=== PATIENT | male | born 1955 | race Two or more races ===

== ENCOUNTER 2025-09-25 22:50 | Emergency (ER) | payer MEDICARE, OTHER ==
[~2025-09-25] VITALS: Ht 165.1 cm; Wt 56.7 kg
[2025-09-26 00:26] LABS: APPEARANCE,URINE CLEAR (CLEAR); BLOOD, URINE TRACE-INTA Ery/uL (NEGATIVE); LEUKOCYTE ESTERASE ,URINE 2+ (NEGATIVE); NITRITE, URINE NEGATIVE (NEGATIVE); UGLUCOSE 2+ mg/dL (NEGATIVE)
[2025-09-26] MEDS ORDERED: CIPR-262 PO (00:30)
[2025-09-26] MEDS ORDERED: CIPROFLOXACIN HCL 500 MG TABLET ONE (00:32)
[2025-09-26] MEDS: CIPROFLOXACIN HCL 500 MG TABLET PO ONE (00:39)
[2025-09-26 00:41] LABS: ADD URINE CULTURE YES; SQUAMOUS EPITHELIAL CELL,UR 0-2 /HPF (None Seen)
[2025-09-26 00:42] LABS: YEAST,URINE Few /HPF (None Seen)
[2025-09-26 00:45] VITALS: BP 135/68; TEMP 98; O2SAT 99
== END 2025-09-26 00:48 | disposition home or self-care (01) ==
LOC: ER 22:57
DX: T83.091A Other mechanical complication of indwelling urethral catheter, initial encounter (principal); N39.0 Urinary tract infection, site not specified; Y73.8 Miscellaneous gastroenterology and urology devices associated with adverse incidents, not elsewhere classified
CPT/HCPCS: 99284; 51702; 87086; 81001; A4217 ×2